=== PATIENT | female | born 1980 | race Caucasian/White ===

== ENCOUNTER 2020-05-08 19:23 | Emergency (ER) | payer OTHER ==
[~2020-05-08] VITALS: Ht 172.7 cm; Wt 77.2 kg
[2020-05-08] MEDS ORDERED: LIDOcaine 1% 30ml preserv. free vial IJ ONE (19:40)
[2020-05-08] MEDS ORDERED: cephalexin 500mg capsule PO ONE (21:10)
[2020-05-08] MEDS ORDERED: CEPH250T PO (21:11)
[2020-05-08 21:30] VITALS: BP 126/71
== END 2020-05-08 21:33 | disposition home or self-care (01) ==
LOC: ER 19:24
DX: S61.011A Laceration without foreign body of right thumb without damage to nail, initial encounter (principal); F17.200 Nicotine dependence, unspecified, uncomplicated; Z86.2 Personal history of diseases of the blood and blood-forming organs and certain disorders involving the immune mechanism; W26.0XXA Contact with knife, initial encounter; Y93.89 Activity, other specified; Y92.89 Other specified places as the place of occurrence of the external cause; Y99.8 Other external cause status
CPT/HCPCS: 12001; 99283

== ENCOUNTER 2021-10-13 10:50 | Emergency (ER) | payer OTHER ==
[~2021-10-13] VITALS: Ht 172.7 cm; Wt 87.7 kg
[2021-10-13 11:07] VITALS: BP 114/84
[2021-10-13 15:54] LABS: BASOPHILS % (AUTO) 0.2 % (0-1); EOSINOPHILS # (AUTO) 0.1 X10'3 (0-0.9); EOSINOPHILS % (AUTO) 1.3 % (0-6); HEMATOCRIT 41.4 % (35.0-45.0); HEMOGLOBIN 14.1 g/dl (12.0-16.0); LYMPHOCYTES # (AUTO) 1.6 X10'3 (1.1-4.8); MEAN CORPUSCULAR HEMOGLOBIN 32.4 PG (27.0-31.0); MEAN CORPUSCULAR VOLUME 95.2 FL (78-98); MEAN PLATELET VOLUME 7.2 FL (7.4-10.4); MONOCYTES # (AUTO) 0.5 X10'3 (0-0.9); MONOCYTES % (AUTO) 6.1 % (2-12); NEUTROPHILS # (AUTO) 5.6 X10'3 (1.8-7.7); NEUTROPHILS % (AUTO) 72.4 % (42-75); PLATELET COUNT 245 X10'3 (140-440); RED BLOOD COUNT 4.35 X10'6 (4.20-5.60); RED CELL DISTRIBUTION WIDTH 12.6 % (11.5-14.5); WHITE BLOOD COUNT 7.8 X10'3 (4.5-11.0)
[2021-10-13 16:07] LABS: ALANINE AMINOTRANSFERASE 29 U/L (12-78); ALBUMIN 3.9 G/DL (3.4-5.0); ALKALINE PHOSPHATASE 80 IU/L (46-116); ANION GAP 11 (8-16); ASPARTATE AMINO TRANSFERASE 18 U/L (10-37); BILIRUBIN,TOTAL 0.3 MG/DL (0.1-1.0); BLOOD UREA NITROGEN 13 MG/DL (7-18); BUN/CREATININE RATIO 16.7 (6.6-38.0); CHLORIDE 105 MMOL/L (99-107); CREATININE 0.78 MG/DL (0.40-0.90); GLUCOSE 116 MG/DL (70-104); POTASSIUM 4.3 MMOL/L (3.5-5.1); SODIUM 142 MMOL/L (135-145); TOTAL CARBON DIOXIDE 26.4 MMOL/L (24-32); TOTAL PROTEIN 7.7 G/DL (6.4-8.2); eGFR 81 ML/MIN
[2021-10-13] MEDS ORDERED: vancomycin/NS 1 GM ADD-VANTAGE 250 ML IV ONE (16:15)
[2021-10-13] MEDS ORDERED: CefTRIAXone 2gm/NS 100ml IVPB 100 ML IV ONE (16:15)
[2021-10-13] MEDS ORDERED: morphine 4 MG/ML inj SYRINge IM ONE (16:35)
[2021-10-13] MEDS ORDERED: ondansetron 4mg rapidly disintigrating tab PO ONE (16:35)
[2021-10-13] MEDS ORDERED: HYDR-3965 PO (19:02)
[2021-10-13] MEDS ORDERED: CEPH500C2 PO (19:02)
[2021-10-13] MEDS ORDERED: SULF1TAB49 PO (19:02)
[2021-10-13] MEDS ORDERED: acetaminophen 325mg tablet PO ONE (19:25)
== END 2021-10-13 20:01 | disposition home or self-care (01) ==
LOC: ER 10:51
DX: S63.617A Unspecified sprain of left little finger, initial encounter (principal); Z86.2 Personal history of diseases of the blood and blood-forming organs and certain disorders involving the immune mechanism; Z79.2 Long term (current) use of antibiotics; Z79.899 Other long term (current) drug therapy; X58.XXXA Exposure to other specified factors, initial encounter; Y93.89 Activity, other specified; Y92.89 Other specified places as the place of occurrence of the external cause; Y99.8 Other external cause status
CPT/HCPCS: 36415; 73140; 80053; 83605; 85025; 96365; 96366; 96368; 99284; J0696; J3370